=== PATIENT | male | born 1975 | race Caucasian/White ===

== ENCOUNTER 2017-03-01 04:41 | Inpatient (IN) | payer MEDICARE, MEDICAID ==
[~2017-03-01] VITALS: Ht 177.8 cm; Wt 98.5 kg
[~2017-03-01 04:41] MED LIST: ARTHROTEC PO; CELE100C OR; HYDR4TAB OR; KETO-28 OR; NICO21DI4 TD; OXCA15HATB OR; PREG50CA OR; SKEL800T5 OR; SOMA350T OR; STOOL SOFTENER PO; TRAZ50TA OR; VALI5TAB OR; VICO5TAB PO; [UNRECOGNIZED DRUG - CODE] OR
--- NOTE | 2017-03-01 06:00 | REPUSA ---
CLINICAL HISTORY: AMS. TECHNIQUE: Multiple axial brain CT scan sections were obtained from base to vertex without contrast a dministration. COMMENTS: The study shows normal configuration of sella turcica. There are no intra or extra-axial collections. There is no mass effect or midline shift. There is no evidence of hematoma formation. No hydrocephal us is present. No abnormal calcifications are noted. No significant abnormalities are seen either in the posterior fossa or supratentorial compartment. The sinuses and mastoid air cells are patent. IMPRESSION: No evidence of acute intracranial pathology. Thank you for your kind referral of this patient.
[2017-03-01 06:17] LABS: ALBUMIN 3.8 GM/DL (3.2-5.2); ALBUMIN/GLOBULIN RATIO 1.06 (1.00-1.93); ALKALINE PHOSPHATASE 100 U/L (45-117); ALT/SGPT 28 U/L (12-78); ANION GAP 9 MEQ/L (8-16); AST/SGOT 22 U/L (15-37); BILIRUBIN,DIRECT < 0.1 MG/DL (0.0-0.2); BILIRUBIN,TOTAL 0.4 MG/DL (0.2-1.0); BLOOD UREA NITROGEN 12 MG/DL (7-18); CALCIUM LEVEL 9.2 MG/DL (8.5-10.1); CARBON DIOXIDE LEVEL 23 MEQ/L (21-32); CHLORIDE LEVEL 107 MEQ/L (98-107); CREATININE FOR GFR 0.77 MG/DL (0.70-1.30); GLOMERULAR FILTRATION RATE > 60.0 (>60); GLUCOSE, FASTING 104 MG/DL (70-105); POTASSIUM SERUM 4.5 MEQ/L (3.5-5.1); SODIUM LEVEL 139 MEQ/L (136-145); TOTAL PROTEIN 7.4 GM/DL (6.4-8.2)
[2017-03-01] MEDS ORDERED: OMEP20CA3 PO (07:06)
[2017-03-01] MEDS ORDERED: DULO1CAP3 PO (07:06)
[2017-03-01] MEDS ORDERED: OXYC20TA2 PO (07:06)
[2017-03-01] MEDS ORDERED: XARE15TA PO (07:06)
[2017-03-01] MEDS ORDERED: GABA600T PO (07:06)
[2017-03-01 07:13] LABS: BASO # 0.1 10^3/uL (0.0-0.2); BASO % 0.4 % (0.0-1.0); EOS % 0.3 % (0.0-3.0); IMMATURE GRANULOCYTE % 0.4 % (0-0); LYMPH # 1.3 10^3/uL (1.5-4.5); MEAN CORPUSCULAR HEMOGLOBIN 33.2 pg (27.0-33.0); MEAN CORPUSCULAR HGB CONC 36.1 g/dl (32.0-36.5); MONO # 0.3 10^3/uL (0.0-0.8); MONO % 2.7 % (0.0-5.0); NEUTROPHILS # 10.3 10^3/uL (1.8-7.7); NEUTROPHILS % 85.2 % (36.0-66.0); PLATELET COUNT, AUTOMATED 257 10^3/uL (150-450); WHITE BLOOD COUNT 12.1 10^3/uL (4.0-10.0)
[2017-03-01] MEDS ORDERED: SODIUM CHLORIDE 0.9% 1000 ML IV ONE (08:00)
[2017-03-01] MEDS ORDERED: DULO1CAP2 PO (09:23)
[2017-03-01] MEDS ORDERED: NS 1,000 ML IV ONE (09:45)
[2017-03-01 10:48] LABS: METHADONE URINE NEGATIVE (NEGATIVE)
[2017-03-01] MEDS ORDERED: ACETAMINOPHEN 500 MG TAB PO PRN (12:45)
[2017-03-01] MEDS ORDERED: ONDANSETRON 4MG/2ML VIAL (J2405) IV PRN (12:45)
[2017-03-01 14:17] VITALS: BP 135/80
[2017-03-01 16:00] VITALS: BP 125/68
[2017-03-01] MEDS: RIVAROXABAN 15 MG TAB (XARELTO) PO SCH (17:30)
[2017-03-01] MEDS: NICOTINE 21MG/24HR 1 EA TRANSDERMAL TD SCH (17:30)
[2017-03-01] MEDS: OMEPRAZOLE 20 MG CAP PO SCH (17:30)
[2017-03-01 20:00] VITALS: BP 128/63
[2017-03-01] MEDS ORDERED: RAMELTEON 8 MG TAB (ROZEREM) PO SCH (21:00)
--- NOTE | 2017-03-01 21:14 | HPE ---
DATE OF ADMISSION: 03/01/2017 PRIMARY CARE PROVIDER: Does not have one. CHIEF COMPLAINT: Confusion and bizarre behavior. PAST MEDICAL HISTORY: Recently diagnosed with deep vein thrombosis (DVT), started on Xarelto. Gastroesophageal reflux disease (GERD). Chronic pain. Polysubstance abuse. HISTORY OF THE PRESENT ILLNESS: This is a 41-year-old male with a history of alcohol abuse and drug abuse who does not have a home. He says his address is a post box in [place]. He has been currently living off and on with his uncle in [place]. Yesterday, police were called to his uncle's residence where the patient was staying as the patient had sent a text message to his ex- threatening to commit suicide. When the police reached the house, the patient denied any suicidal or homicidal ideations so they left. Later on, the police were called back about 2 hours later because the patient was very confused and actively bizarrely. He was oriented to only his name, did not know where he was. At that time, he said he took several beers as well as he took his pain medications, oxycodone. More history was given by the patient's uncle as the patient is still confused and cannot recollect properly what happened, only says that he is fine. As per uncle, the patient has been living off and on with him, and his uncle was asleep when he suddenly woke up by police in his house. After the police came, he tried to calm down the patient, tried to orient him, talk to him. However, after 2 hours of trying, the patient started behaving more and more bizarrely and getting more and more confused, so the ambulance was called back and police came back and the patient was brought to the emergency room by emergency medical services (EMS). Initially in the emergency room, the patient just had some garbled speech, was restless, uncooperative and anxious. Evaluation in the emergency room revealed a urine toxicology positive for cocaine and cannabinoids. However, it was negative for opiates. The rest of his blood work except for complete blood count (CBC) were within normal limits. WBC was mildly elevated at 12.1. He had a CT scan of the brain done which was negative for any acute intracranial pathology. The hospitalist service was consulted for admission for acute encephalopathy related to polysubstance use and suicidal ideation. SURGICAL HISTORY: Could not be obtained as the patient is confused. HOME MEDICATIONS: From review of chart shows: - Cymbalta 60 mg in the morning, 30 mg at bedtime - gabapentin 600 mg by mouth three times a day - oxycodone 20 mg every 8 hours as needed for pain - Xarelto 15 mg by mouth twice a day - omeprazole 40 mg by mouth daily SOCIAL HISTORY: The patient is a smoker and also uses alcohol almost daily. The patient has been known to use drugs also. The patient does not have a home. At present, he lives off and on with his uncle in [place] and sometimes comes to visit his father in [place], who is sick. ALLERGIES: To PENICILLIN and ASPIRIN. REVIEW OF SYSTEMS: There is no history of any fever or chills. No history of nausea, vomiting, abdominal pain or diarrhea. No history of chest pain, cough or phlegm. PHYSICAL EXAMINATION: VITAL SIGNS: Temperature 99.7, pulse 80, respiratory rate 19, blood pressure 135/80, pulse oximetry 96% on room air. GENERAL: Patient awake but confused. HEENT: Normocephalic, atraumatic. Moist mucous membranes. Anicteric eye. CHEST: Clear to auscultation. CARDIOVASCULAR: S1, S2 regular. ABDOMEN: Soft, nontender. Bowel sounds present. EXTREMITIES: No edema. LABORATORY DATA: WBC 12.1, hemoglobin 15.4, platelets 257. Sodium 139, potassium 4.5, chloride 107, bicarbonate 23, BUN 12, creatinine 0.7, glucose 104. Liver function tests are normal. Urine toxicology is positive for cocaine and cannabinoids. Alcohol level is negative. ASSESSMENT AND PLAN: This is a 41-year-old male admitted for acute toxic metabolic encephalopathy due to polysubstance use and suicidal ideation. Plan: For acute encephalopathy, will admit the patient to the progressive care unit (PCU). Will hold off on Cymbalta, oxycodone and gabapentin. Will place the patient on one-to-one observation. Suicidal ideation. Once the patient's mental status is back to baseline, will consult psychiatry for further evaluation. Recent diagnosis of left lower extremity deep vein thrombosis. Patient has started taking Xarelto on the day prior to admission. History of chronic pain. The patient has an active prescription of oxycodone and gabapentin, and Cymbalta. The patient did say that he took some pain medications; however, his urine toxicology is negative for opiates. He states that he took his gabapentin and his Cymbalta. Polysubstance abuse. This is a chronic issue. Deep vein thrombosis (DVT) prophylaxis. The patient is on Xarelto.
[2017-03-01 23:49] VITALS: BP 137/84
[2017-03-02 04:00] VITALS: BP 122/67
--- NOTE | 2017-03-02 05:54 | ECGEPIP ---
Stationary ECG Study [facility] - ED Test Date: 2017-03-01 Pat Name: LATRICE SCHAFFER Department: Room: [place] [address] Gender: M Quality Improvement Specialist: danish : 1975 Requested By: MASON Ch Order Number: [id number] Reading MD: Oscar John Measurements Intervals Dixon Rate: 87 P: 60 MT: 144 QRS: 50 QRSD: 88 T: 46 QT: 371 QTc: 448 Interpretive Statements SINUS RHYTHM POSSIBLE LEFT ATRIAL ENLARGEMENT INCOMPLETE RIGHT BUNDLE BRANCH BLOCK NONSPECIFIC ST & T-WAVE ABNORMALITY NO PRIORS Electronically Signed On 03-02-2017 5:54:30 EDT by Oscar John
[2017-03-02 06:16] LABS: BASO # 0.1 10^3/uL (0.0-0.2); BASO % 0.5 % (0.0-1.0); EOS # 0.1 10^3/uL (0.0-0.50); EOS % 1.2 % (0.0-3.0); IMMATURE GRANULOCYTE % 0.2 % (0-0); LYMPH # 2.9 10^3/uL (1.5-4.5); LYMPH % 31.9 % (24.0-44.0); MEAN CORPUSCULAR HEMOGLOBIN 32.7 pg (27.0-33.0); MEAN CORPUSCULAR HGB CONC 34.9 g/dl (32.0-36.5); MEAN CORPUSCULAR VOLUME 93.7 fl (80.0-96.0); MONO # 0.6 10^3/uL (0.0-0.8); NEUTROPHILS # 5.6 10^3/uL (1.8-7.7); NEUTROPHILS % 60.2 % (36.0-66.0); PLATELET COUNT, AUTOMATED 259 10^3/uL (150-450); RED CELL DISTRIBUTION WIDTH 13.3 % (11.5-14.5); WHITE BLOOD COUNT 9.2 10^3/uL (4.0-10.0)
[2017-03-02 06:31] LABS: ANION GAP 7 MEQ/L (8-16); BLOOD UREA NITROGEN 12 MG/DL (7-18); CALCIUM LEVEL 8.9 MG/DL (8.5-10.1); CARBON DIOXIDE LEVEL 26 MEQ/L (21-32); CHLORIDE LEVEL 110 MEQ/L (98-107); CREATININE FOR GFR 0.82 MG/DL (0.70-1.30); GLOMERULAR FILTRATION RATE > 60.0 (>60); GLUCOSE, FASTING 79 MG/DL (70-105); POTASSIUM SERUM 3.6 MEQ/L (3.5-5.1); SODIUM LEVEL 143 MEQ/L (136-145)
[2017-03-02 08:00] VITALS: BP 136/82
[2017-03-02] MEDS: OMEPRAZOLE 20 MG CAP PO SCH (08:07)
[2017-03-02] MEDS: NICOTINE 21MG/24HR 1 EA TRANSDERMAL TD SCH (08:07)
[2017-03-02] MEDS: RIVAROXABAN 15 MG TAB (XARELTO) PO SCH ×2 (08:07→17:31)
[2017-03-02] MEDS ORDERED: ENOXAPARIN 40 MG/0.4 ML SYRINGE (J1650) SC SCH (09:00)
[2017-03-02] MEDS ORDERED: DULoxetine 30 MG CAP (CYMBALTA) PO SCH ×2 (09:00→21:00)
[2017-03-02 12:00] VITALS: BP 152/86
--- NOTE | 2017-03-02 14:54 | IPNPDOC ---
Subjective Date Seen The patient was seen on 03/02/17. Subjective Chief Complaint/HPI The patient is a 41-year-old male admitted with a reason for visit of Acute Encephalopathy Polysubstance Abuse. Events since last encounter no complaints this morning , feeling well , mental status back to baseline. No confusion. Objective Physical Examination General Exam: Positive: Alert, Cooperative, No Acute Distress Eye Exam: Positive: PERRLA, Conjunctiva & lids normal, EOMI, Negative: Sclera icteric ENT Exam: Positive: Atraumatic, Mucous membr. moist/pink, Pharynx Normal Neck Exam: Positive: Supple, Negative: JVD, thyromegaly Chest Exam: Positive: Clear to auscultation, Normal air movement Heart Exam: Positive: Rate Normal, Regular Rhythm, Normal S1, Normal S2, Negative: Murmurs, Rubs Telemetry: Positive: No significant arrhythmia Abdomen Exam: Positive: Normal bowel sounds, Soft, Negative: Tenderness, Hepatospenomegaly Extremity Exam: Positive: Normal pulses, Negative: Clubbing, Cyanosis, Edema Skin Exam: Positive: Nl turgor and temperature, Negative: Rash, Breakdown Assessment /Plan Problems (1) Acute encephalopathy Status: Acute Problem Text: due to polysubstance abuse. No signs of any infection or any encephalitis. now resolved (2) Brachial plexopathy Status: Chronic Problem Text: takes cymbalta. (3) Polysubstance abuse Status: Acute Problem Text: denies taking any cocaine, denies taking any oxycodone though he has prescription for it, says only took his prescribed dose of gabapentin , he did not even take his Cymbalta as he had ran out of it about 3 days prior. denies using any cocaine (4) DVT (deep venous thrombosis) Status: Acute Problem Text: diagnosed a week ago at [facility] and was started on xarelto. Plan/VTE VTE Prophylaxis Ordered?: Yes VS, I&O, 24H, Fishbone Vital Signs/I&O Vital Signs Date Time Temp Pulse Resp B/P (MAP) Pulse Ox O2 Delivery O2 Flow Rate FiO2 03/02/17 08:00 98.9 83 18 136/82 (100) 95 Room Air I&O- Last 24 Hours up to 6 AM 03/03/17 06:00 Intake Total 1080 ml Output Total 725 ml Balance 355 ml Laboratory Data 24H LABS Laboratory Tests 2 03/02/17 05:28: Immature Granulocyte % (Auto) 0.2H, White Blood Count 9.2, Red Blood Count 4.28L , Hemoglobin 14.0, Hematocrit 40.1L, Mean Corpuscular Volume 93.7, Mean Corpuscular Hemoglobin 32.7, Mean Corpuscular Hemoglobin Concent 34.9, Red Cell Distribution Width 13.3, Platelet Count 259, Neutrophils (%) (Auto) 60.2, Lymphocytes (%) (Auto) 31.9, Monocytes (%) (Auto) 6.0H, Eosinophils (%) (Auto) 1.2, Basophils (%) (Auto) 0.5, Neutrophils # (Auto) 5.6, Lymphocytes # (Auto) 2.9, Monocytes # (Auto) 0.6, Eosinophils # (Auto) 0.1, Basophils # (Auto) 0.1, Immature Granulocyte # (Auto) 0.0, Nucleated Red Blood Cells % (auto) 0.0, Anion Gap 7L, Glomerular Filtration Rate > 60.0, Blood Urea Nitrogen 12, Creatinine 0.82, Sodium Level 143, Potassium Level 3.6, Chloride Level 110H, Carbon Dioxide Level 26, Calcium Level 8.9 CBC/BMP Laboratory Tests 03/02/17 05:28 Red Blood Count 4.28 L, Mean Corpuscular Volume 93.7, Mean Corpuscular Hemoglobin 32.7, Mean Corpuscular Hemoglobin Concent 34.9, Red Cell Distribution Width 13.3, Neutrophils (%) (Auto) 60.2, Lymphocytes (%) (Auto) 31.9, Monocytes (%) (Auto) 6.0 H, Eosinophils (%) (Auto) 1.2, Basophils (%) ( Auto) 0.5, Neutrophils # (Auto) 5.6, Lymphocytes # (Auto) 2.9, Monocytes # (Auto ) 0.6, Eosinophils # (Auto) 0.1, Basophils # (Auto) 0.1, Calcium Level 8.9 RAISSA MARSH MD Mar 02, 2017 14:54
[2017-03-02 16:00] VITALS: BP 142/79
[2017-03-02] MEDS ORDERED: LORazepam 0.5 MG TAB PO STA (18:50)
--- NOTE | 2017-03-02 19:48 | CR ---
DATE OF CONSULTATION: 03/02/2017 CHIEF COMPLAINT: He says he feels okay. SUBJECTIVE: He is 41 years old. He is once, currently , apparently this is his second marriage. He has two children, both 16-year-old fraternal twins, by his ex , they live with their mother in [place]. His current lives in [place]. He himself stays with his parents at times in [place], at other times his uncle in [place], [place], and apparently has been trying to move to [place], intends doing so. It should be noted the patient's history is obtained from him, as well as from the chart. He is interviewed. I have been asked to see him as he has apparently taken an overdose, and there are concerns regarding his safety. He says he is on Cymbalta at 90 mg daily, says he gets it for pain as well as anxiety and depression, though is somewhat vague on this. Says he ran out of Cymbalta about three or so days ago, was doing okay, says then remembers the police coming to his place, he is not quite sure why, and then he says after they left he went to sleep, and the next thing he remembers is waking up in hospital. He says he "may have said something" to his ex , whom he calls quite vindictive. He denies that he has been feeling suicidal, suggests had been doing okay emotionally, and has been trying to do to [place], in fact, was there within the last couple of weeks, says he took one of his aunts there, and plans to return soon. The information from the chart, as well as Dr. Jefferson, the hospitalist who had apparently spoken to the patient's uncle, indicates that he had texted his ex that he wanted to kill himself. The police were called, came to see him, he denied he was suicidal, they left, but were called back a couple of hours later as the patient was found to be quite confused, acting bizarrely, disoriented. He had apparently said that he had taken a few beers, as well as his pain medications, including oxycodone. He was brought here, remained confused, uncooperative, had garbled speech, was restless. Urine toxicology was positive for cocaine and cannabis. He denies he smokes cocaine. Acknowledges he uses cannabis occasionally. Says he is unsure if it was "laced" with anything else, resulting in cocaine being positive. Denies that he was suicidal, says has no intentions of dying. He has been dividing his time between his uncle's place in [place] and the parents in [place] for a while now, though he is vague on this. Says it is not unusual for him, as he says he has worked out of state off-and-on for many years , and has not necessarily lived in a steady place. Says he is not quite sure why he and his do not live together, but says the spend quite a lot of time with each other. Says sleep has generally been okay, as is appetite. Says has attended appointments with the pain clinic, sees them once a month, locally here at [facility]. Upon admission, CT scan of the brain was done, which was essentially negative. PAST PSYCHIATRIC HISTORY: Says he may have seen a psychiatrist about 20 years ago, but he is not quite sure in what context and denies any history of suicide attempts or inpatient psychiatric hospitalizations. FAMILY PSYCHIATRIC HISTORY: Currently unknown. SUBSTANCE ABUSE HISTORY: Denies any, though I am not quite sure how accurate that is. Does say uses cannabis fairly occasionally. Denies using any alcohol, though initial summary suggests that he uses it daily. ALLERGIES: PENICILLIN, ASPIRIN. SOCIAL HISTORY: Not much known, given this interview, says parents are in [place], they live there, and he has been staying there off-and-on. On other occasions stays with his uncle here in [place], [place], nearby, his lives in [place]. Says he sees his daughters, who say with his ex , regularly, at least once a week. Says he generally gets along well with them. Says he is in the process of moving to [place]. MENTAL STATUS EXAMINATION: He is sitting up on bed. He has hospital clothes. Appears well nourished. Is neat. Cooperative, though possibly somewhat superficially so, at times guarded. No agitation. No psychomotor retardation. Speech spontaneous. At times displays mild irritability. Denies any suicidal thoughts or intents. No homicidal ideas or intents. Denies any auditory or visual hallucinations. Does not appear to be internally preoccupied. No fluctuation of consciousness. He is alert and oriented to time, place and person. Cognition is grossly intact. Intellect average. Judgment quite questionable, as is insight. ASSESSMENT: 1. Delirium secondary to suspected overdose. 2. Other specified depressive disorder. 3. Rule out major depressive disorder. He came in quite confused, agitated, delirious, soon after he had texted his ex that he wanted to kill himself. The police had been called, he denied any such intents, they left, and within two hours, was found to be quite confused and agitated, and was brought back. It is quite likely he minimizes his difficulties. He tends to rationalize them. He has no fixed address at present, and has marital difficulties. RECOMMENDATIONS: Given the above, and the uncertainties and discrepancies, and quite possible minimization of his difficulties, he needs inpatient psychiatric hospitalization for further evaluation and stabilization. He meets criteria for involuntary hospitalization. He initially indicated he did not want to be hospitalist, wanted to go home, says his brother is back for the weekend from overseas, and that he leaves soon. He then indicated he would prefer to be transferred to [facility] in [place] to be near his family. I explained the procedure to him for that, but before we were able to proceed, he indicated he will stay here. I would anticipate a short stay, which will depend on how well he does, and collateral information would be helpful to obtain a more full picture. Thank you for the consult. Any questions, please call. The relevant application has been made. The assessment took 45 minutes. DEMETRIO
[2017-03-02 20:00] VITALS: BP 140/86
--- NOTE | 2017-03-04 20:21 | DSES ---
DATE OF ADMISSION: 03/02/2017 DATE OF DISCHARGE: 03/02/2017 PRIMARY CARE PROVIDER: Unknown. DISCHARGE DIAGNOSES: 1. Acute encephalopathy due to polysubstance use. 2. History of polysubstance abuse. 3. Acute deep venous thrombosis (DVT) diagnosed about 1 week prior to this admission. 4. Brachial plexopathy with chronic shoulder pain. 5. Suicidal attempt DISCHARGE MEDICATIONS: - Cymbalta 60 mg in the morning, 30 mg at bedtime - gabapentin 600 mg by mouth three times a day - omeprazole 40 mg by mouth daily - Xarelto 15 mg by mouth twice a day HOSPITAL COURSE: This is a 41-year-old male who was brought into the emergency room by emergency medical services (EMS) after his uncle called because the patient was confused and behaving bizarrely at home for about 3-4 hours and which was not improving. Earlier on the same night, the police went to the uncle's house where the patient was leaving in the direction of his ex- to whom he had texted that he was planning to commit suicide. At that time, the police did not feel that he was suicidal or homicidal so they left and then they were called back because he was behaving bizarrely. In the emergency room, he was found to be encephalopathic, confused, disoriented, could not remember what has been going on. His lab work looked mostly within normal limits. His urine toxicology was positive for cocaine and cannabinoids. Alcohol level was normal. Patient was admitted to telemetry for further observation. On day #2 of admission, his mental status completely cleared and he was back to baseline, his usual self. On detailed questioning at that time, he admitted to taking only his regular dose of gabapentin. He denied any cocaine. He did say he did some weed about a week ago. He says that he has oxycodone, however, he had not used it for many weeks, also he has not been using his Cymbalta as he had run out of the medication 3-4 days ago. Patient also said he was recently diagnosed with acute DVT in [facility] about a week prior and just got reauthorization for Xarelto, which he started taking the day prior to admission. He denied sending any texts about suicidal ideation to his ex-, denied any suicidal or homicidal ideas to me, however I requested psychiatry to evaluate the patient. There was suspicion for major depressive disorder so he was accepted for observation and stabilization in the inpatient mental health unit ([facility]). Patient was subsequently transferred to inpatient mental health. On the day of transfer, patient's vital signs were stable, he was functioning at baseline, and did not have any complaints. PHYSICAL EXAMINATION: VITAL SIGNS: Temperature 97.8, pulse 67, respiratory rate 18, blood pressure 140/86, pulse oximetry 98% in room air. GENERAL: Patient awake, alert, oriented times three, sitting up in bed in no acute distress. HEENT: Normocephalic, atraumatic. Moist mucous membranes. Anicteric eyes. CHEST: Clear to auscultation. CARDIOVASCULAR: S1, S2, regular. No rub, murmur, or gallop. ABDOMEN: Soft, nontender. Bowel sounds normal. EXTREMITIES: No edema. LABORATORY DATA: WBC 9.2, hemoglobin 14, platelets 259. Sodium 143, potassium 3.6, chloride 110, bicarbonate 26, BUN 12, creatinine 0.8. Liver function tests normal. Calcium 8.9. DISPOSITION: Patient is transferred to inpatient mental health unit. DISCHARGE INSTRUCTIONS: Patient to be set up with a primary care provider when he is ready for discharge from inpatient mental health unit, to followup in 1-2 weeks' time. Regular diet. Activity as tolerated. MTDD
== END 2017-03-02 22:33 | DRG 896 ==
LOC: M ED 04:41 → M ED INP 12:41 → M PCU 14:17 → OBSVTOIN 03-02 12:36
PROVIDERS: ADMIT Internal Medicine Nephrology; ATTEND Internal Medicine Nephrology
DX: F19.10 Other psychoactive substance abuse, uncomplicated (principal); G92 Toxic encephalopathy; I82.402 Acute embolism and thrombosis of unspecified deep veins of left lower extremity; F17.210 Nicotine dependence, cigarettes, uncomplicated; F10.10 Alcohol abuse, uncomplicated; G89.29 Other chronic pain; K21.9 Gastro-esophageal reflux disease without esophagitis; G54.0 Brachial plexus disorders; F32.9 Major depressive disorder, single episode, unspecified; Z79.01 Long term (current) use of anticoagulants; Z79.891 Long term (current) use of opiate analgesic; Z79.899 Other long term (current) drug therapy

== ENCOUNTER 2017-03-02 22:35 | Inpatient (IN) | payer MEDICARE, MEDICAID ==
[~2017-03-02] VITALS: Ht 177.8 cm; Wt 90.9 kg
[2017-03-02] MEDS: GABAPENTIN 300 MG CAP PO SCH (21:00)
[2017-03-02] MEDS: DULoxetine 30 MG CAP (CYMBALTA) PO SCH (21:00)
[~2017-03-02 22:35] MED LIST changes: +DULO1CAP2 PO; +DULO1CAP3 PO; +GABA600T PO; +OMEP20CA3 PO; +OXYC20TA2 PO; +XARE15TA PO
[2017-03-02 22:50] VITALS: BP 143/82
[2017-03-02] MEDS ORDERED: MAALOX 30 ML SUSP *UDC PO PRN (23:30)
[2017-03-02] MEDS ORDERED: traZODone 50 MG TAB PO PRN (23:30)
[2017-03-02] MEDS ORDERED: OLANZapine ORAL DISINTEGRATING TAB 5MG PO PRN (23:30)
[2017-03-02] MEDS ORDERED: MOM 30ML SUSPENSION UDC PO PRN (23:30)
[2017-03-03 06:44] VITALS: BP 137/79
[2017-03-03] MEDS: GABAPENTIN 300 MG CAP PO SCH ×3 (08:48→20:48)
[2017-03-03] MEDS: DULoxetine 30 MG CAP (CYMBALTA) PO SCH ×2 (08:49→20:48)
[2017-03-03] MEDS: RIVAROXABAN 15 MG TAB (XARELTO) PO SCH ×2 (08:49→18:00)
[2017-03-03] MEDS: OMEPRAZOLE 20 MG CAP PO SCH (08:49)
[2017-03-03] MEDS: NICOTINE 21MG/24HR 1 EA TRANSDERMAL TD SCH (08:50)
[2017-03-03 15:58] VITALS: BP 150/80
[2017-03-03] MEDS: ACETAMINOPHEN TAB 650MG DOSE (2X325MG) PO PRN (16:00)
[2017-03-03 18:17] VITALS: BP 148/77
--- NOTE | 2017-03-03 20:12 | MHHPE ---
DATE OF ADMISSION: 03/03/2017 CHIEF COMPLAINT: Feels okay. SUBJECTIVE: He is 41 years old. He is . This is his second marriage. Has an ex- and twins who live with the ex-. The patient is transferred here after being admitted to the hospital a couple of days ago. There was some concern that he had texted his ex- that he was going to kill himself and then, a few hours later, was found to be agitated, confused, restless. Brought to the hospital, stabilized and then I had seen him on the consult service. Please refer to my consultation summary regarding the nature of the circumstances of his admission, background history as well, mental status examination at the time, and recommendations, which suggested that he ought to be admitted to inpatient psychiatry for further management and stabilization. He has not had any previous inpatient hospitalizations. He does not think that he took an overdose, but does not have much of an explanation as to the clinical picture seen when he came in. It should be noted urine toxicology was positive for cocaine. He denies using any, suggests the cannabis must have been "laced." He says had an okay night, does not recall any more of what had happened. Collateral information from his , in [place], who spoke with staff here, suggests that the patient's ex-, in [place], has in the past, attempted getting the patient admitted to psychiatry, but in the recent few months and the had intervened. The has apparently, the patient does have quite a bit of pain, has been diagnosed with thoracic outlet syndrome, and is in the process of getting a primary care in [place]. Dr. Woods, would see him. She also indicated he had gone off his medicines about two weeks ago. He says he had not taken any pain medications and that he tends to go off them on occasions when he feels he does not need them, does not run out of them, as he does not use them regularly. He has been on oxycodone in the past. He says he has been in touch with his parents, who he stays with temporarily, in fact, divides his time between there and an uncle. Parents in [place], uncle in [place], [place]. PAST PSYCHIATRIC HISTORY: Please refer to the previous summary. BACKGROUND HISTORY: Please refer to the previous summary. MEDICAL HISTORY: Please refer to the previous summary. He says he has had a deep venous thrombosis a couple of weeks ago and had been treated. MENTAL STATUS EXAMINATION: He is sitting up in bed. He is seen in the presence of staff. He is a bit unkempt. Somewhat guarded, but more relaxed as the interview proceeded. He shows no agitation. No psychomotor retardation. Affect is restricted in range. Appears mildly irritable at times, but more relaxed at others. He denies any suicidal thoughts or intents. No homicidal ideas or intents. No evidence of any psychosis. His cognition is grossly intact. Judgment and insight are questionable. ASSESSMENT: 1. Other specified depressive disorder. 2. Rule out major depressive disorder. 3. The possibility of a suspected overdose is considered. 4. Also needs to consider the possibility of cannabis use disorder, impurities leading to confusion, though it is not likely, given the clinical picture. PLAN: He is admitted to inpatient psychiatry and is placed on relevant precautions. We will look at obtaining further collateral information to help solidify database, which will be helpful when planning for discharge. I would also suggest giving the Cymbalta he is on. He takes 90 mg daily and he will resume that daily. We also will encourage him to participate in activities in the unit. We will look at the hospitalist see him for followup while he is here should the need arise. I would anticipate a short stay, provided collateral information can be gathered and assessment made. It should be noted the ex- attempts to "get him admitted," may also account for the quick cognitive changes seen, with the confusion and the patient being brought in.
[2017-03-04 06:36] VITALS: BP 135/74
[2017-03-04] MEDS: DULoxetine 30 MG CAP (CYMBALTA) PO SCH ×2 (08:06→21:55)
[2017-03-04] MEDS: OMEPRAZOLE 20 MG CAP PO SCH (08:06)
[2017-03-04] MEDS: NICOTINE 21MG/24HR 1 EA TRANSDERMAL TD SCH (08:06)
[2017-03-04] MEDS: RIVAROXABAN 15 MG TAB (XARELTO) PO SCH ×2 (08:06→17:57)
[2017-03-04] MEDS: GABAPENTIN 300 MG CAP PO SCH ×3 (08:06→21:55)
[2017-03-04] MEDS: oxyCODONE 5MG TAB PO PRN ×3 (08:07→21:57)
[2017-03-04] MEDS: ACETAMINOPHEN TAB 650MG DOSE (2X325MG) PO PRN ×2 (09:12→19:51)
--- NOTE | 2017-03-04 09:16 | HPE ---
DATE OF ADMISSION: 03/02/2017 HISTORY OF PRESENT ILLNESS: Please refer to psychiatric history and evaluation for further details on this admission. This examination and history is intended for medical issues, which may need treatment, followup or consult on this 41-year-old male who was transferred from the progressive care unit (PCU) after having been stabilized for acute toxic metabolic encephalopathy secondary to polysubstance abuse and suicidal ideation. ALLERGIES: ASPIRIN, PENICILLIN, PENICILLIN CROSS REACTORS. SOCIAL HISTORY: He is . He says currently homeless, says his is staying with a friend. He states he does not drink alcohol. States he smokes marijuana. Urine toxicology was also positive for cocaine. He has a history of polysubstance abuse. PAST MEDICAL HISTORY: 1. He was recently diagnosed with a deep venous thrombosis (DVT) and just started on Xarelto 15 mg by mouth twice a day, which he will take for 3 weeks, then 20 mg by mouth daily. 2. Gastroesophageal reflux disease (GERD). 3. Chronic pain. 4. Polysubstance abuse. Pain doctor is currently Dr. Mitchell in [place]. PAST SURGICAL HISTORY: 1. Right arm brachioplasty. 2. Carpal tunnel release right wrist. CURRENT MEDICATIONS: - duloxetine 30 mg by mouth nightly, 60 mg by mouth every morning - gabapentin 600 mg by mouth three times a day - omeprazole 40 mg by mouth daily - Xarelto 15 mg by mouth twice a day - per the I-STOP, oxycodone 20 mg by mouth three times a day by Dr. Mitchell REVIEW OF SYSTEMS: 10-system review was done. He was complaining of shoulder pain and right lower leg pain, which is where he has a DVT. PHYSICAL EXAMINATION: 41-year-old cooperative male in no acute distress. Height 70 inches, weight 90.9 kg, body mass index (BMI) 28.8. Patient is alert and oriented times three. Pupils equal and react to light. Extraocular muscles intact. Cornea and sclerae clear. Conjunctivae were normal. No facial asymmetry. Pharynx, tongue and gums pink and moist. Tongue is midline. Neck is supple without lymphadenopathy. No thyromegaly, no goiter. Carotids 2+ without bruit. Chest clear to auscultation without wheeze or retraction. Heart is regular. Abdomen is benign. Bowel sounds positive. Genitourinary/rectal: Not done. Extremities show equal strength, full range of motion. No cyanosis, clubbing or edema. Complains of pain in the left calf and right shoulder with range of motion. Peripheral pulses equal and palpable bilaterally. Skin is warm and dry. IMPRESSION/PLAN: 1. History of reflux. Continue omeprazole. 2. Deep venous thrombosis (DVT). Continue Xarelto 15 mg by mouth twice a day for a total of 21 days and then he will need to go to Xarelto 20 mg by mouth daily. 3. Chronic pain. Discussed with Dr. Mace. Patient has been receiving 20 mg of oxycodone IR, taking two times a day. Last received 02/[address] Mitchell at [place]. Per Dr. Mace, we will give him just 5 mg by mouth every 6 hours to help take the edge off and prevent withdrawal. He can also have Tylenol 650 by mouth every 6 hours as needed for pain. 4. Psychiatric plan per psychiatry.
[2017-03-04 18:00] VITALS: BP 138/86
[2017-03-05] MEDS: oxyCODONE 5MG TAB PO PRN ×3 (06:31→19:15)
[2017-03-05 06:38] VITALS: BP 123/67
[2017-03-05] MEDS: OMEPRAZOLE 20 MG CAP PO SCH (08:10)
[2017-03-05] MEDS: NICOTINE 21MG/24HR 1 EA TRANSDERMAL TD SCH (08:11)
[2017-03-05] MEDS: DULoxetine 30 MG CAP (CYMBALTA) PO SCH ×2 (08:11→21:57)
[2017-03-05] MEDS: RIVAROXABAN 15 MG TAB (XARELTO) PO SCH ×2 (08:11→17:57)
[2017-03-05] MEDS: GABAPENTIN 300 MG CAP PO SCH ×3 (08:11→21:57)
--- NOTE | 2017-03-05 09:38 | MHIPN ---
DATE: 03/05/2017 CHIEF COMPLAINT: Feels better. SUBJECTIVE: Seen for followup, in the presence of staff. Says feels better, particularly now that he has some pain relief, says the pain is down to 3-5 out of 10. Says had a better night, and has been eating, feels more optimistic. Says was visited by his uncle yesterday, that went well, and his parents plan to visit today. MENTAL STATUS EXAMINATION: He is neat. He is cooperative. He appears more relaxed. He is coherent. No agitation. No psychomotor retardation. Affect broader, he denies any thoughts of harming himself or anyone else. No evidence of any psychosis. Cognition grossly intact. His judgment is improved, as is insight. ASSESSMENT: Other specified depressive disorder. Rule out major depressive disorder. PLAN: Continue current care. He has been resumed on the Cymbalta at 90 mg daily. I would suggest obtaining further collateral information, particularly from his parents when they come in today. He is to be encouraged to participate in activities in the unit. I would suggest that once safety is ascertained, considering discharge in the near future. He will be seeing the psychiatrist and treatment team assigned to him tomorrow. VITAL SIGNS: Blood pressure 135/74. Pulse 71. Temperature 98.9.
[2017-03-05] MEDS: ACETAMINOPHEN TAB 650MG DOSE (2X325MG) PO PRN ×2 (10:25→17:11)
--- NOTE | 2017-03-05 15:06 | MHIPN ---
DATE: 03/05/2017 A 41-year-old male admitted after he was found agitated, confused, restless. He was admitted to the medical floor stabilization and then transferred to our service. It is reported that his ex- said that he sent her a text message with suicidal thoughts. The police went to his house and he told them that he was fine. Two hours later, the patient was brought to the emergency room because of mental status change. At that time, he is described as being quite confused, acting bizarrely and disoriented. When seen in psychiatric consultation at the medical floor, the patient could not given an explanation of why his mental status had changed. The patient denied the use of any drugs or alcohol. His urine drug screen (UDS) was positive for marijuana and cocaine. MEDICATIONS: - Cymbalta 90 mg by mouth daily - trazodone 50 mg by mouth at bedtime as needed for insomnia - Neurontin 600 mg by mouth three times a day SUBJECTIVE: "I'm fine, I don't need to be here." OBJECTIVE: The patient has improved significantly from the description given at admission at the emergency room. He is no longer confused, restless, or agitated. I am not sure if the patient is reliable and he cannot come up with an explanation of his mental status change. He only reports feeling stressed because "my father is dying of COPD and I cannot see my children." MENTAL STATUS EXAMINATION: The patient is dressed in [facility]. The patient is cooperative during the interview. He has fair eye contact. Speech is normal in rate, volume, articulation, is coherent and is spontaneous. Mood is euthymic. Affect is congruent with mood. There is no evidence of delusions or hallucinations. Memory is fair. The patient is fully oriented. Associations are intact. Thinking is logical. Thought content is appropriate. The patient is denying or suicidal or homicidal ideation but I am not sure about if he is reliable. Insight and judgment is fair. ASSESSMENT: 1. Depression. 2. Suicidal ideation. 3. Mental status change. PLAN: 1. Continue Cymbalta 90 mg by mouth every morning. 2. Continue trazodone as needed for insomnia. 3. We will contact the for collateral information.
[2017-03-05 18:00] VITALS: BP 135/89
[2017-03-06] MEDS: oxyCODONE 5MG TAB PO PRN ×2 (05:23→11:25)
[2017-03-06] MEDS: ACETAMINOPHEN TAB 650MG DOSE (2X325MG) PO PRN (05:26)
[2017-03-06 06:52] VITALS: BP 125/65
[2017-03-06] MEDS: OMEPRAZOLE 20 MG CAP PO SCH (08:12)
[2017-03-06] MEDS: RIVAROXABAN 15 MG TAB (XARELTO) PO SCH (08:12)
[2017-03-06] MEDS: GABAPENTIN 300 MG CAP PO SCH (08:12)
[2017-03-06] MEDS: DULoxetine 30 MG CAP (CYMBALTA) PO SCH (08:12)
[2017-03-06] MEDS: NICOTINE 21MG/24HR 1 EA TRANSDERMAL TD SCH (08:13)
--- NOTE | 2017-03-06 16:36 | MHDS ---
DATE OF ADMISSION: 03/02/2017 DATE OF DISCHARGE: 03/06/2017 LEGAL STATUS AT ADMISSION: Involuntary. HISTORY OF PRESENT ILLNESS: The following information is according to the initial evaluation of Dr. Mace, his progress note and my own progress note. The patient is a 41-year-old male admitted after being agitated, confused and restless. He was admitted to the medical floor for stabilization and then transferred to our service. It was reported by his ex- that he sent a text message expressing suicidal thoughts. The police went to his house to check on him and he reported that he was fine. Two hours later, the patient was brought to the emergency department (ED) because of mental status change. He is described as being quite confused, acting bizarrely, and disoriented. He was seen in consultation on the medical floor by Dr. Mace. At that time, he denied any use of drugs or alcohol. His urine drug screen was positive for marijuana and cocaine and he was unable to provide details or reasons of his mental status change. LABORATORY DATA AT ADMISSION: Were not drawn this time in our unit since he was medically worked up at the medical floor. HOSPITAL COURSE: The patient was admitted and restarted on Cymbalta 90 mg by mouth daily, trazodone 50 mg by mouth at bedtime as needed for insomnia, gabapentin 600 mg by mouth three times a day. With the above medication, the patient was stabilized. I first saw the patient on 03/05/2017. At that time, he was back to baseline with normal mental status examination. He was no longer confused or disoriented. He was denying any suicidal or homicidal ideation. The patient was also denying any auditory or visual hallucinations. The patient was asking to be discharged. His was contacted and she gave collateral information which was similar to the one that was gathered from our staff. She was not concerned about the patient's safety or suicidal potential. During this admission, the patient says that his ex- has tendency to report that he is suicidal and he is not sure why his ex- wants him to be admitted to the hospital, but he is denying any suicidal thoughts. On 03/06/2017, the patient continued to do well, stable, interacting well with other patients and staff, not showing signs or symptoms of major depression. There is no evidence of psychomotor retardation. His facial expression is within normal limits. He is able to joke and laugh with other patients. Therefore, at this point, the patient does not meet criteria for involuntary hospitalization. He is requesting to be discharged and he is willing to continue taking his medications and followup recommendations, so the patient was discharged on 03/06/2017 in a stable condition. MENTAL STATUS EXAMINATION: The patient is dressed in [facility]. The patient is calm and cooperative. His speech is clear, coherent with normal rate and is spontaneous. The patient has good eye contact. Mood is euthymic. Affect is appropriate and congruent with mood. The patient is oriented to time, place, person, and situation. He maintains attention and concentration correctly. Instant recall, recent and remote memory are intact. Thought processes are coherent, logical and goal-directed. The patient does not have auditory or visual hallucinations. The patient does not have paranoid, persecutory, somatic, grandiose or alevism delusions. The patient is denying suicidal or homicidal ideation. Insight and judgment are fair. DISCHARGE MEDICATIONS: Cymbalta 90 mg by mouth daily. CONDITION AT DISCHARGE: Stable. No suicidal or homicidal ideation. No auditory or visual hallucinations. No delusions. DISCHARGE DIAGNOSES: AXIS I: Adjustment disorder with depressed and anxious mood. Rule out cocaine and cannabis abuse. AXIS II: Deferred. AXIS III: None acute. INSTRUCTIONS TO THE PATIENT: The patient is to continue taking his medications as prescribed and followup appointments. He is advised to maintain absolute sobriety from drugs and alcohol. The patient has a scheduled appointment for medication management, individual therapy, and primary care physician.
== END 2017-03-06 13:53 | disposition home or self-care (01) | DRG 882 ==
LOC: M PSY 22:35
PROVIDERS: ADMIT Psychiatry & Neurology Psychiatry; ATTEND Psychiatry & Neurology Psychiatry
DX: F43.23 Adjustment disorder with mixed anxiety and depressed mood (principal); R45.851 Suicidal ideations; F12.10 Cannabis abuse, uncomplicated; F14.10 Cocaine abuse, uncomplicated; K21.9 Gastro-esophageal reflux disease without esophagitis; Z88.0 Allergy status to penicillin; G89.29 Other chronic pain; Z86.73 Personal history of transient ischemic attack (TIA), and cerebral infarction without residual deficits; Z79.899 Other long term (current) drug therapy